=== PATIENT | female | born 1995 | race Caucasian/White ===

== ENCOUNTER 2016-05-23 13:25 | Emergency (ER) | payer OTHER ==
[2016-05-23] MEDS ORDERED: KETOROLAC 30 MG/ML VIAL (J1885) As Ordered ONE (14:02)
[2016-05-23] MEDS ORDERED: GASTROGRAFIN SOLUTION 30ML (Q9963) As Ordered ONE (14:34)
[2016-05-23 14:35] LABS: BASO # 0.1 K/mm3 (0.0-0.2); EOS # 0.6 K/mm3 (0.0-0.50); EOS % 7.2 % (0.0-3.0); LARGE UNSTAINED CELL # 0.1 K/mm3 (0.0-0.4); LARGE UNSTAINED CELL % 1.6 % (0.0-4.0); LYMPH # 1.4 K/mm3 (1.5-6.5); LYMPH % 17.3 % (24.0-44.0); MEAN CORPUSCULAR HEMOGLOBIN 28.1 pg (27.0-33.0); MEAN CORPUSCULAR HGB CONC 33.3 g/dl (32.0-36.5); MEAN CORPUSCULAR VOLUME 84.4 fl (80.0-96.0); MONO # 0.5 K/mm3 (0.0-0.8); MONO % 5.5 % (0.0-5.0); NEUTROPHILS # 5.6 K/mm3 (1.8-7.7); NEUTROPHILS % 67.4 % (36.0-66.0); PLATELET COUNT, AUTOMATED 306 k/mm3 (150-450); RED CELL DISTRIBUTION WIDTH 12.8 % (11.5-14.5); WHITE BLOOD COUNT 8.3 K/mm3 (4.0-10.0)
[2016-05-23 14:50] LABS: AMYLASE 38 U/L (25-115); ANION GAP 7 MEQ/L (8-16); BLOOD UREA NITROGEN 10 MG/DL (7-18); CALCIUM LEVEL 8.7 MG/DL (8.5-10.1); CARBON DIOXIDE LEVEL 28 MEQ/L (21-32); CHLORIDE LEVEL 109 MEQ/L (98-107); CREATININE FOR GFR 0.84 MG/DL (0.55-1.02); GLUCOSE, FASTING 76 MG/DL (70-105); SODIUM LEVEL 144 MEQ/L (136-145)
[2016-05-23] MEDS ORDERED: ISOVUE-370 76% 100ML VIAL (Q9967) As Ordered ONE (15:41)
--- NOTE | 2016-05-23 16:13 | REP ---
Clinical: Left-sided abdominal pain. Technique: Axial contrast enhanced images from the lung bases to the pubic symphysis using oral and 100 ml Isovue 370 intravenous contrast material with coronal and sagittal re-formations. Findings: Lung bases clear. Visualized heart and pericardium normal. Liver, spleen, gallbladder, pancreas, bilateral adrenal glands and kidneys are normal. The enteric system is without obstruction or acute inflammatory process and a normal terminal ileum and appendix are identified in the right lower quadrant. Pelvis demonstrates normal bladder and age-appropriate uterus/adnexa. No pelvic fluid or ascites. No adenopathy. No free air. Vasculature normal. Surrounding musculoskeletal structures intact. Impression: Normal contrast enhanced CT of the abdomen and pelvis. No acute intra-abdominal or pelvic pathology appreciated. Signed by Henri Guzman MD 05/23/2016 04:05 P
--- NOTE | 2016-05-23 16:29 | EDDOCDS ---
Nurse's Notes [facility] Name: Chapis Garcia Age: 20 yrs Sex: Female : 1995 Arrival Date: 05/23/2016 Time: 13:25 Bed I4 / M4 Private MD: Brianna Godwin E. Diagnosis: Other abdominal pain-LEFT LATERAL Presentation: 05/23 13:29 Presenting complaint: Patient states: left ovary pain since 0500 today. Adult Sepsis srm Screening: The patient does not have new or worsening altered mentation. Patient's respiratory rate is less than 22. Systolic blood pressure is greater than 100. Patient has a qSOFA score of 0- Negative Sepsis Screen. Suicide/Homicide risk assessment- the patient denies having any suicidal and/or homicidal ideations and does not present with any other emotional, behavioral or mental health complaints. Status: Patient is not a transportation services representative or dependent. Transition of care: patient was not received from another setting of care. 13:29 Acuity: TEVIN Level 4 srm 13:29 Method Of Arrival: Walkin/Carried/Asstd srm Triage Assessment: 13:30 General: Appears in no apparent distress, Behavior is appropriate for age, cooperative. srm Pain: Pain currently is 8 out of 10 on a pain scale. 13:30 Pt Declines HIV testing. 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 none - PMHx: none; - PSHx: cyst removed from neck; - Social history: Smoking status: Patient uses tobacco products, current every day smoker. No barriers to communication noted, The patient speaks fluent Nigerian, Speaks appropriately for age. - Family history: Not pertinent. - : The pt / caregiver states he / she is not on anticoagulants. Home medication list is obtained from the patient. - Exposure Risk Screening:: None identified. Screenin:24 Screening information is obtained from the patient. Fall risk: No risks identified. kc3 Assistance ADL's: requires no assistance with activities of daily living. Abuse/DV Screen: The patient / caregiver reports he/she is: not in a situation that causes fear, pain or injury. Nutritional screening: No deficits noted. home support is adequate. 16:28 Advance Directives: Currently, there is no health care proxy. kc3 Assessment: 14:23 General: Appears in no apparent distress, comfortable, Behavior is appropriate for age, kc3 cooperative. Pain: Pain: Location: left lower quadrant Pain currently is 7 out of 10 on a pain scale. 14:23 Neurological: Level of Consciousness is awake, alert, obeys commands. Respiratory: kc3 Respiratory effort is even, unlabored. Derm: Skin is pink, warm & dry. 14:40 General: resting on stretcher, no apparent distress. reports lower abdominal pain - pml tolerable at this time. PO gastrographin given, tolerating without complaints. . 15:35 General: Appears in no apparent distress, comfortable, Behavior is appropriate for age, pml cooperative. Pain: Location: abdomen Pain currently is 3 out of 10 on a pain scale. Neurological: Level of Consciousness is awake, alert, Oriented to person, place, time. Respiratory: Airway is patent Respiratory effort is even, unlabored. Derm: Skin is pink, warm & dry. 15:56 General: Pt to CT - tolerated without complaints. resps easy and unlabored.. pml 16:27 General: Appears in no apparent distress, comfortable, Behavior is appropriate for age, kc3 cooperative. Pain: Denies pain. Respiratory: Respiratory effort is even, unlabored. Derm: Skin is pink, warm & dry. Vital Signs: 13:27 BP 136 / 69; Pulse 85; Resp 18; Temp 97.7(O); Pulse Ox 100% on R/A; Weight 99.79 kg nb2 (R); Height 5 ft. 7 in. (170.18 cm); Pain 7/10; 16:16 BP 132 / 77; Pulse 77; Resp 18; Temp 97.9(T); Pulse Ox 100% on R/A; Pain 2/10; nb2 13:27 Body Mass Index 34.46 (99.79 kg, 170.18 cm) nb2 Vitals: 13:27 Log In Time: May 23, 2016 at 13:23. nb2 ED Course: 13:26 Patient visited by Farzaneh King. nb2 13:26 Brianna Godwin is Private Physician. nb2 13:26 Patient moved to Waiting nb2 13:28 Patient visited by Farzaneh King. nb2 13:29 Triage Initiated srm 13:30 Patient moved to Triage 1 srm 13:33 Nidia Arriola [facility]-C [facility]. dt4 13:33 Dwayne De Los Santos MD is Attending Physician. dt4 13:33 Patient visited by Nidia Arriola PA-C. dt4 13:41 Patient moved to / [facility] 14:24 Inserted saline lock: 20 gauge in right antecubital area and blood collected. The kc3 patient tolerated the procedure well. 14:27 Patient visited by Prabha Jarquin RN. kc3 14:27 The patient / caregiver is instructed regarding the plan of care and ED course. kc3 14:39 [facility] Payment Agreement was scanned into [employer] and attached to record. mm15 14:41 Patient visited by Nataliya Florian RN. pml 15:08 Patient name changed from Chapis\S\\S\Garcia\S\ to Chapis\S\ \S\Garcia. EDMS 15:42 Patient visited by Nataliya Florian RN. pml 15:56 Patient visited by Nataliya Florian RN. pml 16:17 Patient visited by Farzaneh King. nb2 16:28 Discontinued IV lock intact, bleeding controlled, pressure dressing applied, No kc3 redness/swelling at site. No procedures done that require assistance. Administered Medications: 14:26 Drug: ketorolac 30 mg [ketorolac 30 mg/mL (1 mL) injection solution (1 mL)] Route: IVP; kc3 Site: right antecubital; 14:40 Drug: Diatrizoate Meglumine & Sodium 10 ml [diatrizoate meglumine and diat.sodium 66 pml %-10 % oral solution (10 mL)] Route: PO; 15:10 Drug: Diatrizoate Meglumine & Sodium 10 ml [diatrizoate meglumine and diat.sodium 66 pml %-10 % oral solution (10 mL)] Route: PO; Point of Care Testing: Urine : 14:26 hCG Reading: Negative; Control Reading: Positive; kc3 Urine Dip: 14:26 pH: 7; ; Specific [place]: 1.010; Ketones: Negative; Glucose: Negative; Protein: kc3 Negative; Leukocytes: Positive (+); Nitrite: Negative ; Blood: Negative; Bilirubin: Negative ; Urobilinogen: Normal Ranges: Order Results: Lab Order: CBC with Diff; SPEC'M 05/23/16 14:17 Test: WHITE BLOOD COUNT; Value: 8.3; Range: 4.0-10.0; Units: K/mm3; Status: F Test: RED BLOOD COUNT; Value: 5.19; Range: 4.00-5.40; Units: M/mm3; Status: F Test: HEMOGLOBIN; Value: 14.6; Range: 12.0-16.0; Units: g/dl; Status: F Test: HEMATOCRIT; Value: 43.8; Range: 36.0-47.0; Units: %; Status: F Test: MEAN CORPUSCULAR VOLUME; Value: 84.4; Range: 80.0-96.0; Units: fl; Status: F Test: MEAN CORPUSCULAR HEMOGLOBIN; Value: 28.1; Range: 27.0-33.0; Units: pg; Status: F Test: MEAN CORPUSCULAR HGB CONC; Value: 33.3; Range: 32.0-36.5; Units: g/dl; Status: F Test: RED CELL DISTRIBUTION WIDTH; Value: 12.8; Range: 11.5-14.5; Units: %; Status: F Test: PLATELET COUNT, AUTOMATED; Value: 306; Range: 150-450; Units: k/mm3; Status: F Test: NEUTROPHILS %; Value: 67.4; Range: 36.0-66.0; Abnormal: Above high normal; Units: %; Status: F Test: LYMPH %; Value: 17.3; Range: 24.0-44.0; Abnormal: Below low normal; Units: %; Status: F Test: MONO %; Value: 5.5; Range: 0.0-5.0; Abnormal: Above high normal; Units: %; Status: F Test: EOS %; Value: 7.2; Range: 0.0-3.0; Abnormal: Above high normal; Units: %; Status: F Test: BASO %; Value: 1.0; Range: 0.0-1.0; Units: %; Status: F Test: LARGE UNSTAINED CELL %; Value: 1.6; Range: 0.0-4.0; Units: %; Status: F Test: NEUTROPHILS #; Value: 5.6; Range: 1.8-7.7; Units: K/mm3; Status: F Test: LYMPH #; Value: 1.4; Range: 1.5-6.5; Abnormal: Below low normal; Units: K/mm3; Status: F Test: MONO #; Value: 0.5; Range: 0.0-0.8; Units: K/mm3; Status: F Test: EOS #; Value: 0.6; Range: 0.0-0.50; Abnormal: Above high normal; Units: K/mm3; Status: F Test: BASO #; Value: 0.1; Range: 0.0-0.2; Units: K/mm3; Status: F Test: LARGE UNSTAINED CELL #; Value: 0.1; Range: 0.0-0.4; Units: K/mm3; Status: F Lab Order: Basic Metabolic Profile; [facility]05/23/16 14:17 Test: GLUCOSE, FASTING; Value: 76; Range: 70-105; Units: MG/DL; Status: F Test: BLOOD UREA NITROGEN; Value: 10; Range: 7-18; Units: MG/DL; Status: F Test: CREATININE FOR GFR; Value: 0.84; Range: 0.55-1.02; Units: MG/DL; Status: F Test: SODIUM LEVEL; Value: 144; Range: 136-145; Units: MEQ/L; Status: F Test: POTASSIUM SERUM; Value: 4.0; Range: 3.5-5.1; Units: MEQ/L; Status: F Test: CHLORIDE LEVEL; Value: 109; Range: 98-107; Abnormal: Above high normal; Units: MEQ/L; Status: F Test: CARBON DIOXIDE LEVEL; Value: 28; Range: 21-32; Units: MEQ/L; Status: F Test: ANION GAP; Value: 7; Range: 8-16; Abnormal: Below low normal; Units: MEQ/L; Status: F Test: CALCIUM LEVEL; Value: 8.7; Range: 8.5-10.1; Units: MG/DL; Status: F Lab Order: CRP; [facility]05/23/16 14:17 Test: C REACTIVE PROTEIN QUANTITATIV; Value: < 0.30; Range: 0.00-0.30; Units: MG/DL; Status: F Lab Order: Amylase; [facility]17 14:17 Test: AMYLASE; Value: 38; Range: 25-115; Units: U/L; Status: F Lab Order: Lipase; SPEC'M 05/23/16 14:17 Test: LIPASE; Value: 133; Range: 73-393; Units: U/L; Status: F Outcome: 16:15 Discharge ordered by Provider. dt4 16:28 Discharge Assessment: Patient awake, alert and oriented x 3. No cognitive and/or kc3 functional deficits noted. Patient verbalized understanding of disposition instructions. patient administered narcotics - no. The following High Risk Discharge criteria are identified: None. Discharged to home ambulatory. Condition: stable. Discharge instructions given to patient, Instructed on discharge instructions, follow up and referral plans. Demonstrated understanding of instructions, Pt was receptive of discharge instructions/ teaching. CT Study completed. Property :Personal belongings accompany Pt. 16:28 Patient left the ED. kc3 Signatures: Dispatcher [employer] EDMS Juan Francisco Sales RN RN dwg Michelson, Staci, RN RN srm Quay, Paulina, RN RN pml McGrath, Marlynn mm15 Nidia Arriola, PA-C PA-C dt4 Prabha Jarquin RN RN kc3 Farzaneh King nb2 Corrections: (The following items were deleted from the chart) 14:24 14:23 Pain: kc3 kc3 MTDJuanita
--- NOTE | 2016-05-23 16:29 | EDDOCDS ---
Physician Documentation [facility] Name: Chapis Garcia Age: 20 yrs Sex: Female : 1995 Arrival Date: 05/23/2016 Time: 13:25 Bed I4 / M4 Private MD: Brianna Godwin E. Disposition: 05/23/16 16:15 Discharged to Home/Self Care. Impression: Other abdominal pain - LEFT LATERAL. - Condition is Stable. - Discharge Instructions: Abdominal Pain, Women. - Medication Reconciliation, Local Pharmacy Hours form. - Follow up: Emergency Department; When: As needed; Reason: Worsening of conditions. Follow up: Private Physician; When: 2 - 3 days; Reason: Wound/Symptom Recheck, Recheck today's complaints, Continuance of care. - Problem is new. - Symptoms have improved. Historical: - Allergies: no known allergies; - Home Meds: 1. none - PMHx: none; - PSHx: cyst removed from neck; - Social history: Smoking status: Patient uses tobacco products, current every day smoker. No barriers to communication noted, The patient speaks fluent Sinhala, Speaks appropriately for age. - Family history: Not pertinent. - : The pt / caregiver states he / she is not on anticoagulants. Home medication list is obtained from the patient. - Exposure Risk Screening:: None identified. 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 7 in. (170.18 cm); Pain 7/10; 16:16 BP 132 / 77; Pulse 77; Resp 18; Temp 97.9(T); Pulse Ox 100% on R/A; Pain 2/10; nb2 13:27 Body Mass Index 34.46 (99.79 kg, 170.18 cm) nb2 MDM: 13:41 UCG by Nursing ordered. dt4 13:41 Urine Dip ordered. dt4 13:41 ketorolac 30 mg IVP once ordered. dt4 13:41 IV Saline Lock ordered. dt4 13:42 CBC with Diff Ordered. EDMS 13:42 Basic Metabolic Profile Ordered. EDMS 13:42 CRP Ordered. EDMS 13:43 Amylase Ordered. EDMS 13:43 Lipase Ordered. EDMS 14:07 Financial registration complete. mm15 14:23 CT ABD & PELVIS: IV and Oral Contrast Ordered. EDMS 14:39 [facility] Payment Agreement was scanned into [employer] and attached to record. mm15 14:40 Diatrizoate Meglumine & Sodium Liquid 10 ml PO every 30 minutes; mix in 290cc of water pml x2 ordered. Point of Care Testing: Urine : 14:26 hCG Reading: Negative; Control Reading: Positive; kc3 Urine Dip: 14:26 pH: 7; ; Specific [place]: 1.010; Ketones: Negative; Glucose: Negative; Protein: kc3 Negative; Leukocytes: Positive (+); Nitrite: Negative ; Blood: Negative; Bilirubin: Negative ; Urobilinogen: Normal Ranges: Administered Medications: 14:26 Drug: ketorolac 30 mg [ketorolac 30 mg/mL (1 mL) injection solution (1 mL)] Route: IVP; kc3 Site: right antecubital; 14:40 Drug: Diatrizoate Meglumine & Sodium 10 ml [diatrizoate meglumine and diat.sodium 66 pml %-10 % oral solution (10 mL)] Route: PO; 15:10 Drug: Diatrizoate Meglumine & Sodium 10 ml [diatrizoate meglumine and diat.sodium 66 pml %-10 % oral solution (10 mL)] Route: PO; Signatures: Dispatcher [employer] EDIL Brii Rae RN RN srm Quay, Paulina, RN RN pml McGrath, Marlynn mm15 Nidia Arriola, PA-C PA-C dt4 Prabha Jarquin RN RN kc3 The chart was reviewed and I authenticate all verbal orders and agree with the evaluation and treatment provided.Attachments: 14:39 [facility] Payment Agreement mm15 [facility]
--- NOTE | 2016-05-25 17:30 | EDDOCDS ---
Physician Documentation [facility] Name: Chapis Garcia Age: 20 yrs Sex: Female : 1995 Arrival Date: 05/23/2016 Time: 13:25 Bed I4 / M4 Private MD: Brianna Godwin E. Disposition: 05/23/16 16:15 Discharged to Home/Self Care. Impression: Other abdominal pain - LEFT LATERAL. - Condition is Stable. - Discharge Instructions: Abdominal Pain, Women. - Medication Reconciliation, Local Pharmacy Hours form. - Follow up: Emergency Department; When: As needed; Reason: Worsening of conditions. Follow up: Private Physician; When: 2 - 3 days; Reason: Wound/Symptom Recheck, Recheck today's complaints, Continuance of care. - Problem is new. - Symptoms have improved. Historical: - Allergies: no known allergies; - Home Meds: 1. none - PMHx: none; - PSHx: cyst removed from neck; - Social history: Smoking status: Patient uses tobacco products, current every day smoker. No barriers to communication noted, The patient speaks fluent Divehi, Speaks appropriately for age. - Family history: Not pertinent. - : The pt / caregiver states he / she is not on anticoagulants. Home medication list is obtained from the patient. - Exposure Risk Screening:: None identified. 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 7 in. (170.18 cm); Pain 7/10; 16:16 BP 132 / 77; Pulse 77; Resp 18; Temp 97.9(T); Pulse Ox 100% on R/A; Pain 2/10; nb2 13:27 Body Mass Index 34.46 (99.79 kg, 170.18 cm) nb2 MDM: 13:41 UCG by Nursing ordered. dt4 13:41 Urine Dip ordered. dt4 13:41 ketorolac 30 mg IVP once ordered. dt4 13:41 IV Saline Lock ordered. dt4 13:42 CBC with Diff Ordered. EDMS 13:42 Basic Metabolic Profile Ordered. EDMS 13:42 CRP Ordered. EDMS 13:43 Amylase Ordered. EDMS 13:43 Lipase Ordered. EDMS 14:07 Financial registration complete. mm15 14:23 CT ABD & PELVIS: IV and Oral Contrast Ordered. EDMS 14:39 [facility] Payment Agreement was scanned into [employer] and attached to record. mm15 14:40 Diatrizoate Meglumine & Sodium Liquid 10 ml PO every 30 minutes; mix in 290cc of water pml x2 ordered. 20:11 T-Sheet-- Draft Copy was scanned into [employer] and attached to record. klr Point of Care Testing: Urine : 14:26 hCG Reading: Negative; Control Reading: Positive; kc3 Urine Dip: 14:26 pH: 7; ; Specific [place]: 1.010; Ketones: Negative; Glucose: Negative; Protein: kc3 Negative; Leukocytes: Positive (+); Nitrite: Negative ; Blood: Negative; Bilirubin: Negative ; Urobilinogen: Normal Ranges: Administered Medications: 14:26 Drug: ketorolac 30 mg [ketorolac 30 mg/mL (1 mL) injection solution (1 mL)] Route: IVP; kc3 Site: right antecubital; 14:40 Drug: Diatrizoate Meglumine & Sodium 10 ml [diatrizoate meglumine and diat.sodium 66 pml %-10 % oral solution (10 mL)] Route: PO; 15:10 Drug: Diatrizoate Meglumine & Sodium 10 ml [diatrizoate meglumine and diat.sodium 66 pml %-10 % oral solution (10 mL)] Route: PO; Signatures: Dispatcher [employer] EDIL Brii Rae RN Nataliya ChamberlainRN Messi Morris mm15 Nidia Arriola, PADavidC PADavidC dtPrabha Fu RN RN kc3 Lizeth Frank The chart was reviewed and I authenticate all verbal orders and agree with the evaluation and treatment provided.Attachments: 14:39 [facility] Payment Agreement mm15 20:11 T-Sheet-- Draft Copy klr Chart Complete MTDD
--- NOTE | 2016-05-25 17:30 | EDDOCDS ---
Physician Documentation [facility] Name: Chapis Garcia Age: 20 yrs Sex: Female : 1995 Arrival Date: 05/23/2016 Time: 13:25 Bed I4 / M4 Private MD: Brianna Godwin E. Disposition: 05/23/16 16:15 Discharged to Home/Self Care. Impression: Other abdominal pain - LEFT LATERAL. - Condition is Stable. - Discharge Instructions: Abdominal Pain, Women. - Medication Reconciliation, Local Pharmacy Hours form. - Follow up: Emergency Department; When: As needed; Reason: Worsening of conditions. Follow up: Private Physician; When: 2 - 3 days; Reason: Wound/Symptom Recheck, Recheck today's complaints, Continuance of care. - Problem is new. - Symptoms have improved. Historical: - Allergies: no known allergies; - Home Meds: 1. none - PMHx: none; - PSHx: cyst removed from neck; - Social history: Smoking status: Patient uses tobacco products, current every day smoker. No barriers to communication noted, The patient speaks fluent Spanish, Speaks appropriately for age. - Family history: Not pertinent. - : The pt / caregiver states he / she is not on anticoagulants. Home medication list is obtained from the patient. - Exposure Risk Screening:: None identified. 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 7 in. (170.18 cm); Pain 7/10; 16:16 BP 132 / 77; Pulse 77; Resp 18; Temp 97.9(T); Pulse Ox 100% on R/A; Pain 2/10; nb2 13:27 Body Mass Index 34.46 (99.79 kg, 170.18 cm) nb2 MDM: 13:41 UCG by Nursing ordered. dt4 13:41 Urine Dip ordered. dt4 13:41 ketorolac 30 mg IVP once ordered. dt4 13:41 IV Saline Lock ordered. dt4 13:42 CBC with Diff Ordered. EDMS 13:42 Basic Metabolic Profile Ordered. EDMS 13:42 CRP Ordered. EDMS 13:43 Amylase Ordered. EDMS 13:43 Lipase Ordered. EDMS 14:07 Financial registration complete. mm15 14:23 CT ABD & PELVIS: IV and Oral Contrast Ordered. EDMS 14:39 [facility] Payment Agreement was scanned into [employer] and attached to record. mm15 14:40 Diatrizoate Meglumine & Sodium Liquid 10 ml PO every 30 minutes; mix in 290cc of water pml x2 ordered. 20:11 T-Sheet-- Draft Copy was scanned into [employer] and attached to record. klr Point of Care Testing: Urine : 14:26 hCG Reading: Negative; Control Reading: Positive; kc3 Urine Dip: 14:26 pH: 7; ; Specific [place]: 1.010; Ketones: Negative; Glucose: Negative; Protein: kc3 Negative; Leukocytes: Positive (+); Nitrite: Negative ; Blood: Negative; Bilirubin: Negative ; Urobilinogen: Normal Ranges: Administered Medications: 14:26 Drug: ketorolac 30 mg [ketorolac 30 mg/mL (1 mL) injection solution (1 mL)] Route: IVP; kc3 Site: right antecubital; 14:40 Drug: Diatrizoate Meglumine & Sodium 10 ml [diatrizoate meglumine and diat.sodium 66 pml %-10 % oral solution (10 mL)] Route: PO; 15:10 Drug: Diatrizoate Meglumine & Sodium 10 ml [diatrizoate meglumine and diat.sodium 66 pml %-10 % oral solution (10 mL)] Route: PO; Signatures: Dispatcher [employer] EDRI Brii Rae RN Nataliya ChambrelainRN Messi Morris mm15 Nidia Arriola, PADavidC PADavidC dtPrabha Fu RN RN kc3 Lizeth Frank The chart was reviewed and I authenticate all verbal orders and agree with the evaluation and treatment provided.Attachments: 14:39 [facility] Payment Agreement mm15 20:11 T-Sheet-- Draft Copy klr Chart Complete MTDD
--- NOTE | 2016-05-25 17:30 | EDDOCDS ---
Nurse's Notes [facility] Name: Chapis Garcia Age: 20 yrs Sex: Female : 1995 Arrival Date: 05/23/2016 Time: 13:25 Bed I4 / M4 Private MD: Brianna Godwin E. Diagnosis: Other abdominal pain-LEFT LATERAL Presentation: 05/23 13:29 Presenting complaint: Patient states: left ovary pain since 0500 today. Adult Sepsis srm Screening: The patient does not have new or worsening altered mentation. Patient's respiratory rate is less than 22. Systolic blood pressure is greater than 100. Patient has a qSOFA score of 0- Negative Sepsis Screen. Suicide/Homicide risk assessment- the patient denies having any suicidal and/or homicidal ideations and does not present with any other emotional, behavioral or mental health complaints. Status: Patient is not a service plumber or dependent. Transition of care: patient was not received from another setting of care. 13:29 Acuity: TEVIN Level 4 srm 13:29 Method Of Arrival: Walkin/Carried/Asstd srm Triage Assessment: 13:30 General: Appears in no apparent distress, Behavior is appropriate for age, cooperative. srm Pain: Pain currently is 8 out of 10 on a pain scale. 13:30 Pt Declines HIV testing. 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 none - PMHx: none; - PSHx: cyst removed from neck; - Social history: Smoking status: Patient uses tobacco products, current every day smoker. No barriers to communication noted, The patient speaks fluent Welsh, Speaks appropriately for age. - Family history: Not pertinent. - : The pt / caregiver states he / she is not on anticoagulants. Home medication list is obtained from the patient. - Exposure Risk Screening:: None identified. Screenin:24 Screening information is obtained from the patient. Fall risk: No risks identified. kc3 Assistance ADL's: requires no assistance with activities of daily living. Abuse/DV Screen: The patient / caregiver reports he/she is: not in a situation that causes fear, pain or injury. Nutritional screening: No deficits noted. home support is adequate. 16:28 Advance Directives: Currently, there is no health care proxy. kc3 Assessment: 14:23 General: Appears in no apparent distress, comfortable, Behavior is appropriate for age, kc3 cooperative. Pain: Pain: Location: left lower quadrant Pain currently is 7 out of 10 on a pain scale. 14:23 Neurological: Level of Consciousness is awake, alert, obeys commands. Respiratory: kc3 Respiratory effort is even, unlabored. Derm: Skin is pink, warm & dry. 14:40 General: resting on stretcher, no apparent distress. reports lower abdominal pain - pml tolerable at this time. PO gastrographin given, tolerating without complaints. . 15:35 General: Appears in no apparent distress, comfortable, Behavior is appropriate for age, pml cooperative. Pain: Location: abdomen Pain currently is 3 out of 10 on a pain scale. Neurological: Level of Consciousness is awake, alert, Oriented to person, place, time. Respiratory: Airway is patent Respiratory effort is even, unlabored. Derm: Skin is pink, warm & dry. 15:56 General: Pt to CT - tolerated without complaints. resps easy and unlabored.. pml 16:27 General: Appears in no apparent distress, comfortable, Behavior is appropriate for age, kc3 cooperative. Pain: Denies pain. Respiratory: Respiratory effort is even, unlabored. Derm: Skin is pink, warm & dry. Vital Signs: 13:27 BP 136 / 69; Pulse 85; Resp 18; Temp 97.7(O); Pulse Ox 100% on R/A; Weight 99.79 kg nb2 (R); Height 5 ft. 7 in. (170.18 cm); Pain 7/10; 16:16 BP 132 / 77; Pulse 77; Resp 18; Temp 97.9(T); Pulse Ox 100% on R/A; Pain 2/10; nb2 13:27 Body Mass Index 34.46 (99.79 kg, 170.18 cm) nb2 Vitals: 13:27 Log In Time: May 23, 2016 at 13:23. nb2 ED Course: 13:26 Patient visited by Frazaneh King. nb2 13:26 Brianna Godwin is Private Physician. nb2 13:26 Patient moved to Waiting nb2 13:28 Patient visited by Farzaneh King. nb2 13:29 Triage Initiated srm 13:30 Patient moved to Triage 1 srm 13:33 Nidia Arriola PA-C is [facility]. dt4 13:33 Dwayne De Los Santos MD is Attending Physician. dt4 13:33 Patient visited by Nidia Arriola PA-C. dt4 13:41 Patient moved to I4 / [facility] 14:24 Inserted saline lock: 20 gauge in right antecubital area and blood collected. The kc3 patient tolerated the procedure well. 14:27 Patient visited by Prabha Jarquin RN. kc3 14:27 The patient / caregiver is instructed regarding the plan of care and ED course. kc3 14:39 [facility] Payment Agreement was scanned into Yes[employer] and attached to record. mm15 14:41 Patient visited by Nataliya Florian RN. pml 15:08 Patient name changed from Chapis\S\\S\Garcia\S\ to Chapis\S\ \S\Garcia. EDMS 15:42 Patient visited by Nataliya Florian RN. pml 15:56 Patient visited by Nataliya Florian RN. pml 16:17 Patient visited by Farzaneh King. nb2 16:28 Discontinued IV lock intact, bleeding controlled, pressure dressing applied, No kc3 redness/swelling at site. No procedures done that require assistance. 17:05 CT ABD & PELVIS: IV and Oral Contrast Returned. EDMS 20:11 T-Sheet-- Draft Copy was scanned into YesVideo and attached to record. klr Administered Medications: 14:26 Drug: ketorolac 30 mg [ketorolac 30 mg/mL (1 mL) injection solution (1 mL)] Route: IVP; kc3 Site: right antecubital; 14:40 Drug: Diatrizoate Meglumine & Sodium 10 ml [diatrizoate meglumine and diat.sodium 66 pml %-10 % oral solution (10 mL)] Route: PO; 15:10 Drug: Diatrizoate Meglumine & Sodium 10 ml [diatrizoate meglumine and diat.sodium 66 pml %-10 % oral solution (10 mL)] Route: PO; Point of Care Testing: Urine : 14:26 hCG Reading: Negative; Control Reading: Positive; kc3 Urine Dip: 14:26 pH: 7; ; Specific [place]: 1.010; Ketones: Negative; Glucose: Negative; Protein: kc3 Negative; Leukocytes: Positive (+); Nitrite: Negative ; Blood: Negative; Bilirubin: Negative ; Urobilinogen: Normal Ranges: Order Results: Lab Order: CBC with Diff; SPEC'M 05/23/16 14:17 Test: WHITE BLOOD COUNT; Value: 8.3; Range: 4.0-10.0; Units: K/mm3; Status: F Test: RED BLOOD COUNT; Value: 5.19; Range: 4.00-5.40; Units: M/mm3; Status: F Test: HEMOGLOBIN; Value: 14.6; Range: 12.0-16.0; Units: g/dl; Status: F Test: HEMATOCRIT; Value: 43.8; Range: 36.0-47.0; Units: %; Status: F Test: MEAN CORPUSCULAR VOLUME; Value: 84.4; Range: 80.0-96.0; Units: fl; Status: F Test: MEAN CORPUSCULAR HEMOGLOBIN; Value: 28.1; Range: 27.0-33.0; Units: pg; Status: F Test: MEAN CORPUSCULAR HGB CONC; Value: 33.3; Range: 32.0-36.5; Units: g/dl; Status: F Test: RED CELL DISTRIBUTION WIDTH; Value: 12.8; Range: 11.5-14.5; Units: %; Status: F Test: PLATELET COUNT, AUTOMATED; Value: 306; Range: 150-450; Units: k/mm3; Status: F Test: NEUTROPHILS %; Value: 67.4; Range: 36.0-66.0; Abnormal: Above high normal; Units: %; Status: F Test: LYMPH %; Value: 17.3; Range: 24.0-44.0; Abnormal: Below low normal; Units: %; Status: F Test: MONO %; Value: 5.5; Range: 0.0-5.0; Abnormal: Above high normal; Units: %; Status: F Test: EOS %; Value: 7.2; Range: 0.0-3.0; Abnormal: Above high normal; Units: %; Status: F Test: BASO %; Value: 1.0; Range: 0.0-1.0; Units: %; Status: F Test: LARGE UNSTAINED CELL %; Value: 1.6; Range: 0.0-4.0; Units: %; Status: F Test: NEUTROPHILS #; Value: 5.6; Range: 1.8-7.7; Units: K/mm3; Status: F Test: LYMPH #; Value: 1.4; Range: 1.5-6.5; Abnormal: Below low normal; Units: K/mm3; Status: F Test: MONO #; Value: 0.5; Range: 0.0-0.8; Units: K/mm3; Status: F Test: EOS #; Value: 0.6; Range: 0.0-0.50; Abnormal: Above high normal; Units: K/mm3; Status: F Test: BASO #; Value: 0.1; Range: 0.0-0.2; Units: K/mm3; Status: F Test: LARGE UNSTAINED CELL #; Value: 0.1; Range: 0.0-0.4; Units: K/mm3; Status: F Lab Order: Basic Metabolic Profile; SPEC'M 05/23/16 14:17 Test: GLUCOSE, FASTING; Value: 76; Range: 70-105; Units: MG/DL; Status: F Test: BLOOD UREA NITROGEN; Value: 10; Range: 7-18; Units: MG/DL; Status: F Test: CREATININE FOR GFR; Value: 0.84; Range: 0.55-1.02; Units: MG/DL; Status: F Test: SODIUM LEVEL; Value: 144; Range: 136-145; Units: MEQ/L; Status: F Test: POTASSIUM SERUM; Value: 4.0; Range: 3.5-5.1; Units: MEQ/L; Status: F Test: CHLORIDE LEVEL; Value: 109; Range: 98-107; Abnormal: Above high normal; Units: MEQ/L; Status: F Test: CARBON DIOXIDE LEVEL; Value: 28; Range: 21-32; Units: MEQ/L; Status: F Test: ANION GAP; Value: 7; Range: 8-16; Abnormal: Below low normal; Units: MEQ/L; Status: F Test: CALCIUM LEVEL; Value: 8.7; Range: 8.5-10.1; Units: MG/DL; Status: F Lab Order: CRP; SPEC'M 05/23/16 14:17 Test: C REACTIVE PROTEIN QUANTITATIV; Value: < 0.30; Range: 0.00-0.30; Units: MG/DL; Status: F Lab Order: Amylase; SPEC'M 05/23/16 14:17 Test: AMYLASE; Value: 38; Range: 25-115; Units: U/L; Status: F Lab Order: Lipase; SPEC'M 05/23/16 14:17 Test: LIPASE; Value: 133; Range: 73-393; Units: U/L; Status: F Radiology Order: CT ABD & PELVIS: IV and Oral Contrast Test: CT ABD & PELVIS: IV and Oral Contrast REASON FOR EXAMINATION: LEFT LATERAL ABDOMINAL PAIN; Clinical: Left-sided abdominal pain.; ; Technique: Axial contrast enhanced images from the lung bases to the pubic; symphysis using oral and 100 ml Isovue 370 intravenous contrast material with; coronal and sagittal re-formations.; ; Findings:; Lung bases clear. Visualized heart and pericardium normal.; ; Liver, spleen, gallbladder, pancreas, bilateral adrenal glands and kidneys are; normal. The enteric system is without obstruction or acute inflammatory process; and a normal terminal ileum and appendix are identified in the right lower; quadrant. Pelvis demonstrates normal bladder and age-appropriate uterus/adnexa.; No pelvic fluid or ascites. No adenopathy. No free air. Vasculature normal.; Surrounding musculoskeletal structures intact.; ; Impression:; Normal contrast enhanced CT of the abdomen and pelvis. No acute intra-abdominal; or pelvic pathology appreciated.; ; ; Signed by; Henri Guzman MD 05/23/2016 04:05 P; Outcome: 16:15 Discharge ordered by Provider. dt4 16:28 Discharge Assessment: Patient awake, alert and oriented x 3. No cognitive and/or kc3 functional deficits noted. Patient verbalized understanding of disposition instructions. patient administered narcotics - no. The following High Risk Discharge criteria are identified: None. Discharged to home ambulatory. Condition: stable. Discharge instructions given to patient, Instructed on discharge instructions, follow up and referral plans. Demonstrated understanding of instructions, Pt was receptive of discharge instructions/ teaching. CT Study completed. Property :Personal belongings accompany Pt. 16:28 Patient left the ED. kc3 Signatures: Dispatcher [employer] EDJuan Francisco Rhodes RN RN dwg Michelson, Staci, RN RN srm Quay, Paulina, RN RN pml Messi Chris mm15 Nidia Arriola PA-C PA-C dt4 Prabha Jarquin RN RN kc3 Lizeth Frank Nicole nb2 Corrections: (The following items were deleted from the chart) 14:24 14:23 Pain: kc3 kc3 Chart Complete MTDD
== END 2016-05-23 16:28 | disposition home or self-care (01) ==
LOC: M ED 13:25
DX: R10.32 Left lower quadrant pain (principal); R10.12 Left upper quadrant pain; F17.210 Nicotine dependence, cigarettes, uncomplicated
CPT/HCPCS: 36415; 74177; 80048; 81025; 82150; 83690; 85025; 86140; 96374; 99284; J1885; Q9963; Q9967

== ENCOUNTER → 2016-06-23 | Outpatient (REF) | payer OTHER | LOC: M SFHCWAGY 11:35 | PROVIDERS: ATTEND Nurse Practitioner Family | DX: Z11.3 Encounter for screening for infections with a predominantly sexual mode of transmission (principal) ==

== ENCOUNTER 2016-08-05 16:29 | Emergency (ER) | payer OTHER ==
[~2016-08-05] VITALS: Ht 170.2 cm; Wt 99.8 kg
[2016-08-05 16:30] VITALS: BP 135/79
[2016-08-05] MEDS ORDERED: BACT800T5 PO (17:42)
[2016-08-05] MEDS ORDERED: BACTRIM 160MG/800MG DS TAB PO ONE (17:45)
== END 2016-08-05 17:51 | disposition home or self-care (01) ==
LOC: M ED 17:37
DX: L02.415 Cutaneous abscess of right lower limb (principal); F17.210 Nicotine dependence, cigarettes, uncomplicated